=== PATIENT | female | born 2000 | race Asian ===

== ENCOUNTER 2019-03-05 08:54 | Emergency (ER) | payer OTHER ==
[~2019-03-05] VITALS: Ht 154.9 cm; Wt 50.0 kg
[2019-03-05] MEDS ORDERED: PENICILLIN V POTASSIUM 500 MG TABLET PO ONE (10:45)
[2019-03-05] MEDS ORDERED: IBUPROFEN 600 MG TABLET PO ONE (10:45)
[2019-03-05] MEDS ORDERED: HYDROCODONE/ACETAMINOPHEN 5-325 MG TABLET PO ONE (10:45)
[2019-03-05 11:06] VITALS: BP 132/76
== END 2019-03-05 11:06 | disposition home or self-care (01) ==
LOC: EMS 08:59
DX: K05.10 Chronic gingivitis, plaque induced (principal); M27.69 Other endosseous dental implant failure

== ENCOUNTER 2019-11-05 11:02 | Emergency (ER) | payer MEDICAID, OTHER ==
[~2019-11-05] VITALS: Ht 152.4 cm; Wt 49.5 kg
[2019-11-05 12:16] VITALS: BP 124/82
[2019-11-05] MEDS ORDERED: CLOTRIMAZOLE 1%/BETAMETH DIP 0.05% 15 GM CREAM TP ONE (12:30)
== END 2019-11-05 13:22 | disposition home or self-care (01) ==
LOC: EMS 11:03
DX: R21 Rash and other nonspecific skin eruption (principal)